=== PATIENT | male | born 1990 | race Caucasian/White ===

== ENCOUNTER → 2023-10-12 | Outpatient (CLI) | payer OTHER | END | disposition home or self-care (01) | LOC: RAH 12:40 | PROVIDERS: ATTEND Student in an Organized Health Care Education/Training Program | DX: M16.11 Unilateral primary osteoarthritis, right hip (principal); M25.451 Effusion, right hip; N32.89 Other specified disorders of bladder; M76.11 Psoas tendinitis, right hip | CPT/HCPCS: 73721 ==